=== PATIENT | male | born 1935 | race Caucasian/White ===

== ENCOUNTER 2018-11-07 05:38 | Emergency (ER) | payer MEDICARE, BC ==
[2007-01-14 02:15] VITALS: BP 127/68
[~2018-11-07] VITALS: Ht 167.6 cm; Wt 95.5 kg
[2018-11-07 05:45] VITALS: TEMP 97.4
[2018-11-07 06:09] LABS: COLLECTION METHOD CLEAN CATCH
[2018-11-07 06:13] LABS: BASO # 0.1 (0.0-0.2); BASO % 0.7 % (0.0-2.0); EOS # 0.1 (0.0-0.7); EOS % 1.7 % (0-4.0); GRAN # 5.9 (1.4-6.5); GRAN % 69.4 % (42.2-75.2); HEMOGLOBIN 14.7 g/dl (13.5-18.0); LYMPH # 1.5 (1.2-3.4); LYMPH % 17.9 % (20.0-51.0); MEAN CELL VOLUME 88 fl (80.0-100.0); MEAN CORPUSCULAR HEMOGLOBIN 30 pg (27.0-31.0); MEAN CORPUSCULAR HGB CONC 33 g/dl (33.0-37.0); MEAN PLATELET VOLUME 9.4 fl (7.4-10.4); MONO # 0.8 (0.1-0.6); MONO % 9.7 % (1.7-9.3); PLATELET COUNT 256 K/mm3 (130-400); RED BLOOD COUNT 4.99 M/mm3 (4.20-5.60); REDCELL DISTRIBUTION WIDTH-CV 13.2 % (11.5-14.5)
[2018-11-07 06:24] LABS: PH 5 (5-8); URINE APPEARANCE Clear; URINE COLOR Yellow; URINE PROTEIN(semi-quant) 2+ (NEGATIVE)
[2018-11-07 06:25] LABS: URINE BILIRUBIN Negative (NEGATIVE); URINE BLOOD Negative (NEGATIVE); URINE GLUCOSE Negative (NEGATIVE); URINE KETONE Negative (NEGATIVE); URINE LEUKOCYTE ESTERASE Negative (NEGATIVE); URINE NITRATE Negative (NEGATIVE); URINE UROBILINOGEN Negative (NEGATIVE)
[2018-11-07 06:29] LABS: ALBUMIN 4.4 gm/dL (3.5-5.0); BILIRUBIN,TOTAL 0.5 mg/dL (0.0-1.0); CALCIUM 10.8 mg/dL (8.4-10.2); CREATININE, serum 1.22 mg/dL (0.66-1.25); TOTAL PROTEIN 7.6 gm/dL (6.4-8.2)
[2018-11-07 06:36] LABS: POTASSIUM 3.7 mmol/L (3.4-5.0)
[2018-11-07] MEDS ORDERED: LIPITOR20 MG PO (08:13)
[2018-11-07] MEDS ORDERED: TYLEINFANT (08:14)
[2018-11-07] MEDS ORDERED: BYSTOLIC5 MG (08:14)
[2018-11-07] MEDS ORDERED: GLUCOSAMINE & C1 TAB PO (08:15)
[2018-11-07] MEDS ORDERED: ASPIRIN 32325 MG/TAB PO (08:15)
[2018-11-07] MEDS ORDERED: MICARDIS HCT 121 TA1 PO (08:15)
[2018-11-07] MEDS ORDERED: NORCO 325 MG-51 TAB PO (08:30)
[2018-11-07 08:53] VITALS: BP 169/80; PULSE 84
== END 2018-11-07 08:50 | disposition home or self-care (01) ==
LOC: COL.ER 05:38
PROVIDERS: Emergency Medicine
DX: N20.0 Calculus of kidney (principal); I25.10 Atherosclerotic heart disease of native coronary artery without angina pectoris; I10 Essential (primary) hypertension; E78.5 Hyperlipidemia, unspecified; Z79.82 Long term (current) use of aspirin
CPT/HCPCS: J1885; J2405; J3010; J7030; Q9967

== ENCOUNTER → 2020-01-11 | Outpatient (CLI) | payer MEDICARE, BC ==
[~2020-01-11] MED LIST: ASPIRIN 32325 MG/TAB PO; BYSTOLIC5 MG; GLUCOSAMINE & C1 TAB PO; LIPITOR20 MG PO; MICARDIS HCT 121 TA1 PO; NORCO 325 MG-51 TAB PO; TYLEINFANT
== END ==
LOC: COL.CARD 11:30
DX: I49.3 Ventricular premature depolarization (principal)

== ENCOUNTER → 2020-09-12 | Outpatient (CLI) | payer MEDICARE, BC | LOC: COL.RAD 08:30 | DX: C61 Malignant neoplasm of prostate (principal); C79.51 Secondary malignant neoplasm of bone; N20.0 Calculus of kidney; N21.0 Calculus in bladder; Z90.79 Acquired absence of other genital organ(s); Z90.49 Acquired absence of other specified parts of digestive tract | CPT/HCPCS: A9503; Q9967 ==

== ENCOUNTER → 2020-10-23 | Day surgery (SDC) | payer MEDICARE, BC ==
[2007-01-14 02:15] VITALS: BP 127/68
[~2020-10-23] VITALS: Ht 167.6 cm; Wt 85.9 kg
[~2020-10-23] MED LIST changes: +ALEVE 220MG220 MG PO; +ASPIRIN 81M81 MG/TA2 PO; +BYSTOLIC5 MG PO; +COZAAR100 MG PO; +DITROPAN XL15 MG PO; +DUO-KAPS1 CAP PO; +NORVASC2.5 MG PO; +PRILOSEC 20MG20 MG PO; +VITAMINC1000TA PO; +XTANDI40 MG PO
[2020-10-23 14:20] VITALS: BP 145/72; PULSE 66
--- NOTE | 2020-10-23 14:20 | NUR ---
Patient returns to room 6 per cart from PACU and is awake and alert. Denies pain or nausea. IV fluids infusing. Son in room. Taking sips of water. Siderails up x2 and call light in reach.
[2020-10-23 14:35] VITALS: BP 140/48; PULSE 57
--- NOTE | 2020-10-23 14:35 | NUR ---
Resting and takes juice. Continues to deny pain or nausea.
[2020-10-23 14:50] VITALS: BP 140/65; PULSE 62
--- NOTE | 2020-10-23 14:50 | NUR ---
Eating toast and drinking coffee. Continues to deny pain or nausea.
[2020-10-23 15:05] VITALS: BP 172/66; PULSE 69
--- NOTE | 2020-10-23 15:05 | NUR ---
Tolerated snack and fluids. Continues to deny pain or nausea when asked.
--- NOTE | 2020-10-23 15:15 | NUR ---
Patient assisted up to the bathroom and gait is steady.
--- NOTE | 2020-10-23 15:23 | NUR ---
Returns to room after voiding pink tinged urine.
--- NOTE | 2020-10-23 15:30 | NUR ---
IV discontinued and given dismissal instructions. Patient dresses self.
--- NOTE | 2020-10-23 15:40 | NUR ---
Patient dismissed to home driven by daughter and taken to the front door by wheelchair and assisted into vehicle by this RN with dismissal instructions in hand.
[2020-10-24 07:46] VITALS: BP 168/81; PULSE 73; TEMP 97.3
[2020-10-25 08:15] VITALS: BP 154/62; PULSE 63; TEMP 98.4
== END ==
LOC: SDCO 11:04
DX: N21.0 Calculus in bladder (principal); N13.1 Hydronephrosis with ureteral stricture, not elsewhere classified; N32.0 Bladder-neck obstruction; N35.919 Unspecified urethral stricture, male, unspecified site; G47.33 Obstructive sleep apnea (adult) (pediatric); I10 Essential (primary) hypertension; E66.9 Obesity, unspecified; I25.2 Old myocardial infarction; R97.21 Rising PSA following treatment for malignant neoplasm of prostate; Z90.49 Acquired absence of other specified parts of digestive tract; Z96.653 Presence of artificial knee joint, bilateral; Z79.82 Long term (current) use of aspirin; Z79.899 Other long term (current) drug therapy; Z88.0 Allergy status to penicillin; Z90.79 Acquired absence of other genital organ(s); Z85.46 Personal history of malignant neoplasm of prostate; Z85.828 Personal history of other malignant neoplasm of skin; Z88.2 Allergy status to sulfonamides; Z87.891 Personal history of nicotine dependence; Z99.89 Dependence on other enabling machines and devices; Z20.822 Contact with and (suspected) exposure to COVID-19
CPT/HCPCS: C1769; C2617; J2405; J2704; J3010; J7120

== ENCOUNTER → 2020-12-27 | Outpatient (CLI) | payer MEDICARE, BC | LOC: COL.RAD 07:54 | DX: C61 Malignant neoplasm of prostate (principal); M89.9 Disorder of bone, unspecified; R22.9 Localized swelling, mass and lump, unspecified; Z90.49 Acquired absence of other specified parts of digestive tract | CPT/HCPCS: A9503; Q9967 ==

== ENCOUNTER → 2021-05-15 | Outpatient (CLI) | payer MEDICARE, BC | LOC: COL.RAD 09:20 | DX: K21.9 Gastro-esophageal reflux disease without esophagitis (principal) ==

== ENCOUNTER 2022-09-12 12:14 | Inpatient (IN) | payer MEDICARE, BC ==
[~2022-09-12] VITALS: Ht 170.2 cm; Wt 89.5 kg
[2022-09-12] VITALS (284 sets, daily range): BP systolic 78–79; BP diastolic 50–51; O2SAT 72–100
[~2022-09-12 12:14] MED LIST changes: +BYSTOLIC10 MG PO; +GEMTESA75 MG PO; +PRIL40 PO; +PYRIDIUM 100MG100 MG PO; +TYLENOL 325MG325 MG PO; +TYLENOL W/COD1 UDTAB PO
[2022-09-12 12:37] LABS: BASO # 0.1 K/mm3 (0.0-0.2); BASO % 0.3 % (0.0-2.0); EOS # 0.1 K/mm3 (0.0-0.7); EOS % 0.4 % (0.0-4.0); GRAN # 14.5 K/mm3 (1.4-6.5); LYMPH # 0.5 K/mm3 (1.2-3.4); LYMPH % 3.2 % (20.0-51.0); MEAN CELL VOLUME 94 fl (80.0-100.0); MEAN CORPUSCULAR HEMOGLOBIN 30 pg (27-31); MEAN CORPUSCULAR HGB CONC 32 g/dl (33.0-37.0); MEAN PLATELET VOLUME 10.3 fl (7.4-10.4); MONO # 0.8 K/mm3 (0.1-0.6); MONO % 5.2 % (1.7-9.3); PLATELET COUNT 304 K/mm3 (130-400); RED BLOOD COUNT 3.33 M/mm3 (4.20-5.60); REDCELL DISTRIBUTION WIDTH-CV 14.2 % (11.5-14.5)
[2022-09-12 12:40] LABS: HEMATOCRIT 31.3 % (42.0-52.0)
[2022-09-12 12:42] LABS: SQUAMOUS EPITHELIAL None Seen /hpf (0-10); URINE BACTERIA None Seen /hpf (NONE SEEN); URINE WBC 0-2 /hpf (0-2)
[2022-09-12 12:45] LABS: COLLECTION METHOD CATHETER; URINE APPEARANCE Clear (CLEAR/HAZY); URINE BLOOD 1+ (NEGATIVE); URINE COLOR Amber (YELLOW); URINE GLUCOSE Negative (NEGATIVE); URINE KETONE Negative (NEGATIVE); URINE NITRATE Positive (NEGATIVE); URINE PROTEIN(semi-quant) 1+ (NEGATIVE); URINE UROBILINOGEN 0.2 E.U/dL (0.2-1.0)
[2022-09-12 12:57] LABS: ALBUMIN 1.7 gm/dL (3.4-4.8); BILIRUBIN,TOTAL 0.6 mg/dL (0.2-1.2); CALCIUM 11.4 mg/dL (8.4-10.2); CREATININE, serum 1.5 mg/dL (0.72-1.25); MAGNESIUM 2.2 mg/dL (1.6-2.6); PHOSPHOROUS 3.1 mg/dL (2.3-4.7); POTASSIUM 4.1 mmol/L (3.5-4.5); TOTAL PROTEIN 6.4 gm/dL (6.2-8.1)
[2022-09-12 13:03] LABS: TROPONIN-I 0.019 ng/mL (0.00-0.033)
[2022-09-12 19:41] LABS: ARTERIAL BLD GAS O2 SATURATION 94.6 % (92-100); ARTERIAL BLD GAS TCO2 CT 22.1; ARTERIAL BLOOD GAS BASE EXCESS -1.5 (-2-2); ARTERIAL BLOOD GAS HCO3 21.2 meq/L (22-26); ARTERIAL BLOOD GAS PCO2 30.3 mmHg (35-45); ARTERIAL BLOOD GAS PO2 84.1 mmHg (80-100); ARTERIAL BLOOD GAS pH 7.46 (7.35-7.45)
--- NOTE | 2022-09-12 20:00 | NUR ---
SHIFT REPORT RECEIVED FROM GUARD RANGE. PT RECEIVED FROM OR S/P ABD SURGERY. PT INTUBATED WITH LR RUNNING BY GRAVITY. PT NOT AWAKE OR ALERT. PT WITH LT AC AND RT AC IV ACCESS. PT WITH VERTICAL ABD INCISION WITH BANDAGE CLEAN DAY AND INTACT, NEW COLOSTOMY LT ABD STOMA BEEFY RED IN APPEARANCE, NEW G-TUBE LT ABD WITH TUBING AT 4.5CM AND CLOSED. ABD ROUNDED, FIRM WITH HYPOACTIVE BOWEL SOUNDS. BUE GENERALIZED SCATTERED SCALEY SCABS AND BRUISING. PT WITH FREDERICK IN PLACE WITH MINIMAL ORANGE URINE RETURN, PT HAS BEEN TAKING PYRIDUM. BED IN LOWEST LOCKED POSITION, CALL LIGHT AT BEDSIDE AND BED ALARMS ON.
[2022-09-12 20:49] LABS: CALCIUM 9.3 mg/dL (8.4-10.2); CREATININE, serum 1.45 mg/dL (0.72-1.25); MAGNESIUM 2.1 mg/dL (1.6-2.6); PHOSPHOROUS 4.5 mg/dL (2.3-4.7); POTASSIUM 4.5 mmol/L (3.5-4.5)
[2022-09-12 21:00] LABS: INR 1.5 (0.8-3.0); PROTHROMBIN TIME 17.5 SECONDS (9.7-12.8)
[2022-09-12 21:47] LABS: MEAN CELL VOLUME 95 fl (80.0-100.0); MEAN CORPUSCULAR HGB CONC 31 g/dl (33.0-37.0); PLATELET COUNT 316 K/mm3 (130-400); RED BLOOD COUNT 2.94 M/mm3 (4.20-5.60); REDCELL DISTRIBUTION WIDTH-CV 14.4 % (11.5-14.5)
[2022-09-12 21:49] LABS: HEMATOCRIT 27.8 % (42.0-52.0); HEMOGLOBIN 8.7 g/dl (13.5-18.0); MEAN CORPUSCULAR HEMOGLOBIN 30 pg (27-31)
[2022-09-12 22:21] LABS: BAND 33 % (0-10); LYMPHOCYTE 6 % (20.0-51.0); NEUTROPHILS 61 % (42.0-75.2); PLATELET ESTIMATE NORMAL (NORMAL)
[2022-09-12 22:22] LABS: HYPOCHROMIA 2+
[2022-09-13] VITALS (1044 sets, daily range): BP systolic 78–111; BP diastolic 42–60; PULSE 74–95; TEMP 97.5–98.8; O2SAT 88–100
[2022-09-13 04:38] LABS: ARTERIAL BLOOD GAS BASE EXCESS -0.3 (-2-2); ARTERIAL BLOOD GAS HCO3 22.1 meq/L (22-26); ARTERIAL BLOOD GAS PCO2 29.5 mmHg (35-45); ARTERIAL BLOOD GAS pH 7.49 (7.35-7.45)
--- NOTE | 2022-09-13 05:54 | NUR ---
87 yo male with a history of recurrent prostate cancer on chemotherapy is now admitted s/p colon resection secondary to perforation and concerns for sepsis from an intra-abdominal source. ht 170.2 cm wt 75.6 kg SCr 1.4 with estimated CrCl ~30 ml/min half life 26.5 hours Plan: Patient was to receive an initial loading dose of vancomycin 1500 mg x1 in the ED prior to going to surgery, but could not find any documentation of this loading dose. In light of the patient's decreased urine output, will not re-load patient at this time. Will initiate a maintenance regimen of vancomycin 1000 mg q24h to target a goal trough of 15-20 mcg/ml and begin it sooner than the estimated half life. Will follow patient's renal function, micro data, and vancomycin levels as indicated to assess for any necessary changes to regimen. Thank you for this dosing consult.
[2022-09-13 06:08] LABS: MEAN CELL VOLUME 93 fl (80.0-100.0); MEAN CORPUSCULAR HGB CONC 32 g/dl (33.0-37.0); MEAN PLATELET VOLUME 10.8 fl (7.4-10.4); PLATELET COUNT 317 K/mm3 (130-400); RED BLOOD COUNT 2.79 M/mm3 (4.20-5.60); REDCELL DISTRIBUTION WIDTH-CV 14.4 % (11.5-14.5)
[2022-09-13] MEDS ORDERED: DECADRON 4MG TAB4 MG PO (06:09)
[2022-09-13 06:20] LABS: HEMOGLOBIN 8.4 g/dl (13.5-18.0); MEAN CORPUSCULAR HEMOGLOBIN 30 pg (27-31)
[2022-09-13 06:29] LABS: BILIRUBIN,TOTAL 0.4 mg/dL (0.2-1.2); CALCIUM 9.5 mg/dL (8.4-10.2); CREATININE, serum 1.73 mg/dL (0.72-1.25); PHOSPHOROUS 3.9 mg/dL (2.3-4.7); POTASSIUM 4.2 mmol/L (3.5-4.5)
[2022-09-13 06:34] LABS: INR 1.4 (0.8-3.0); PROTHROMBIN TIME 16.2 SECONDS (9.7-12.8)
[2022-09-13 08:38] LABS: BAND 24 % (0-10); LYMPHOCYTE 5 % (20.0-51.0); NEUTROPHILS 70 % (42.0-75.2)
[2022-09-13 08:39] LABS: ANISOCYTOSIS 1+
[2022-09-13 08:40] LABS: MICROCYTOSIS 1+
[2022-09-13 11:15] LABS: ARTERIAL BLD GAS TCO2 CT 23.1; ARTERIAL BLOOD GAS BASE EXCESS -1.6 (-2-2); ARTERIAL BLOOD GAS HCO3 22.1 meq/L (22-26); ARTERIAL BLOOD GAS PCO2 32.3 mmHg (35-45); ARTERIAL BLOOD GAS PO2 105.4 mmHg (80-100); ARTERIAL BLOOD GAS pH 7.45 (7.35-7.45)
--- NOTE | 2022-09-13 15:09 | NUR ---
Patient is currently intubated; he has had an increased weakness and altered mental status since his first chemo treatment for prostate cancer. Link Machine Operator contacted patient spouse Grazyna ([phone]) and discussed patient home status and anticipated needs. Spouse informs patient had been active, independent up until his first chemotherapy appointment when he obtained "chemo-brain." She states he began to increasingly become weak, and was unable to make decisions, even unable to speak or utilize the TV remote control. For the past two weeks, he has largely been wheelchair bound and their adult daughter Jada Castaneda ([phone]) who is also a medical professional has been providing him full home-care until his hospital admission. Per spouse, Jada is appointed as his DPOA-HC and she will assure that a copy of the paperwork is brought to the hospital to be scanned into patient medical record. Per spouse, patient has access to a cane, walker and wheelchair as needed. He began to eat and drink very little prior to his hospitalization. Daughter was transferring him from the chair to the bed. Patient sees Dr. Antony for primary care and Dr. Cardona for oncology. Patient obtains his medications at [facility] with no difficulties. Spouse does not drive, and she is aware of rehabilitation options for patient, including IPR and/or SNF placements in [facility], should patient be recommended for that care. She does not wish to make further decisions at this time and defers to Jada, requesting this Link Machine Operator call to discuss further. Link Machine Operator contacted Jada, who confirms she is patient's DPOA-HC, and her brother can bring up the Advanced Direct[employer] paperwork Wednesday when he returns to [facility] for scanning into patient medical record. She states she is "exhausted" and "not really thinking" after the care patient has required over the past week. She is up to date on patient status, and she is aware that the next 48-72 hours will be critical in determining patient's recovery and needs he may have. She would like to finish shopping today and get some sleep, requesting social work follow up with her Wednesday-Wednesday to continue discussion re: care planning and pending patient recovery, "Whether he makes it or not." She has no further needs at this time and expresses gratitude for the contact. *Discharge plan pending patient recovery* Link Machine Operator requested to follow up with patient daughter Jada Castaneda ([phone]) on Wednesday or Wednesday to continue care planning conversation.
--- NOTE | 2022-09-13 17:43 | NUR ---
SEDATION NOT COMPLETED PATIENT HAS BECOME RESTLESS THIS EVENING. HE WILL SQUEEZE RNS HANDS BUT NOT ON COMMAND.
--- NOTE | 2022-09-13 20:00 | NUR ---
SHIFT REPORT RECEIVED. PT INTUBATED AND SEDATED. PT ROUSES EASILY BUT DOES NOT FOLLOW COMMANDS AND DOES NOT TRACK MOVEMENT WITH EYES. PT UPPER LOBES WITH CLEAR BREATH SOUNDS WITH DIMINISHED SOUNDS IN BASES. PT ABD INCISION DRESSINGS ARE CLEAN DRY INTACT. PT STOMA IS LIGHT PINK WHICH IS A CHANGE FROM THE BRIGHT RED THE PREVIOUS NIGHT. THERE IS MINIMAL STOOL DRAINAGE IN COLOSTOMY BAG. TURN ASSIST IS ON THE BED AND BED ALARMS ARE ON.
[2022-09-14] VITALS (999 sets, daily range): BP systolic 94–138; BP diastolic 51–100; PULSE 71–112; TEMP 97.8–98.6; O2SAT 86–100
[2022-09-14 03:23] LABS: ARTERIAL BLD GAS O2 SATURATION 94.7 % (92-100); ARTERIAL BLD GAS TCO2 CT 22.7; ARTERIAL BLOOD GAS BASE EXCESS -1.6 (-2-2); ARTERIAL BLOOD GAS HCO3 21.7 meq/L (22-26); ARTERIAL BLOOD GAS PCO2 30.5 mmHg (35-45); ARTERIAL BLOOD GAS PO2 78.5 mmHg (80-100); ARTERIAL BLOOD GAS pH 7.47 (7.35-7.45)
[2022-09-14 04:34] LABS: MEAN CELL VOLUME 95 fl (80.0-100.0); MEAN CORPUSCULAR HGB CONC 31 g/dl (33.0-37.0); MEAN PLATELET VOLUME 10.3 fl (7.4-10.4); PLATELET COUNT 231 K/mm3 (130-400); RED BLOOD COUNT 2.39 M/mm3 (4.20-5.60); REDCELL DISTRIBUTION WIDTH-CV 14.4 % (11.5-14.5)
[2022-09-14 04:48] LABS: BILIRUBIN,TOTAL 0.3 mg/dL (0.2-1.2); CALCIUM 9.9 mg/dL (8.4-10.2); CREATININE, serum 1.5 mg/dL (0.72-1.25); PHOSPHOROUS 3.4 mg/dL (2.3-4.7); POTASSIUM 3.3 mmol/L (3.5-4.5); TOTAL PROTEIN 4.2 gm/dL (6.2-8.1)
[2022-09-14 04:50] LABS: INR 1.4 (0.8-3.0); PROTHROMBIN TIME 15.9 SECONDS (9.7-12.8)
[2022-09-14 05:02] LABS: HEMATOCRIT 22.6 % (42.0-52.0); HEMOGLOBIN 7.1 g/dl (13.5-18.0); MEAN CORPUSCULAR HEMOGLOBIN 30 pg (27-31)
[2022-09-14 05:45] LABS: BAND 4 % (0-10); LYMPHOCYTE 3 % (20.0-51.0)
[2022-09-14 05:48] LABS: ANISOCYTOSIS 1+; HYPOCHROMIA 2+; PLATELET ESTIMATE NORMAL (NORMAL)
[2022-09-14 05:51] LABS: NEUTROPHILS 91 % (42.0-75.2)
--- NOTE | 2022-09-14 06:00 | NUR ---
PT HAS BEEN RESTLESS AND EASILY AGGITABLE THROUGH OUT NIGHT. PT ACHIEVED RASS -1 AFTER INCREASING FENTAYNL. FENTAYNL NOT DECREASED FOR SEDATION VACATION. PT TOLERATING DECREASE IN PROPOFOL.
--- NOTE | 2022-09-14 07:30 | NUR ---
Patient's eyes open spontaneously. At times will track with eyes but is not following any commands. VS stable; will continue to monitor.
[2022-09-14 10:09] LABS: CHOLESTEROL 60 mg/dL (0-199); TRIGLYCERIDE 92 mg/dL (0-149)
[2022-09-14 16:16] LABS: HEMOGLOBIN 6.6 g/dl (13.5-18.0)
--- NOTE | 2022-09-14 16:48 | NUR ---
Telehealth visit with Dr. Mar, Infectious disease. Patient consented to visit via telehealth. Patient's nurse, Zina, present during visit to assist. Connection made with no difficulties. Dr. Mar conducted visit and answered all questions.
--- NOTE | 2022-09-14 18:00 | NUR ---
Patient still opens eyes spontaneously but does not follow commands. Observed pulling at restraints and moving legs in bed. Sedation re-initiated for comfort.
--- NOTE | 2022-09-14 19:24 | NUR ---
PT RESTING IN BED. HE APPEARS TO BE SLIGHTLY AGGITATED AND OCCASIONALLY MOVES HEAD AND ARMS. NO DISTRESS NOTED. VENT PLUGGED INTPO RED OUTLETS. VENT WHEELS LOCKED. AMBUBAG AT HEAD OF BED. HOB WAS 20DEGREES AND ELEVATED TO 30DEGREES. RAILS UP X4 RESTRAINTS ON X2 AND SECURE. VENT AND SUCTION TUBING ARE OUT OF REACH OF PT.
--- NOTE | 2022-09-14 21:15 | NUR ---
NEURO STATUS: PT WILL OPEN EYES TO VOICE BUT DOES NOT FOLLOW DIRECTIONS.
[2022-09-15] VITALS (944 sets, daily range): BP systolic 114–197; BP diastolic 53–101; PULSE 92–125; TEMP 98.6–99.8; O2SAT 87–100
[2022-09-15 00:38] LABS: HEMATOCRIT 22.2 % (42.0-52.0); HEMOGLOBIN 7.4 g/dl (13.5-18.0)
--- NOTE | 2022-09-15 01:21 | NUR ---
PT WAS ABLE TO OPEN EYES AND OPEN MOUTH WIDER WHILE PERFORMING ORAL CARE. NO COMPLICATIONS. NO SIGNS OF RESP DISTRESS. AMBUBAG AT HEAD OF BED.
--- NOTE | 2022-09-15 02:10 | NUR ---
Pt is currently intubated Post operative still on vent but appears in no distress. Requiring no pressor support. VSS. pt will move arms and legs in the bed, open eyes and bite on tube but will not follow commands given by this nurse.
[2022-09-15 04:57] LABS: ARTERIAL BLD GAS O2 SATURATION 96.4 % (92-100); ARTERIAL BLD GAS TCO2 CT 21.8; ARTERIAL BLOOD GAS BASE EXCESS -2.4 (-2-2); ARTERIAL BLOOD GAS HCO3 20.9 meq/L (22-26); ARTERIAL BLOOD GAS PCO2 29.1 mmHg (35-45); ARTERIAL BLOOD GAS pH 7.48 (7.35-7.45)
[2022-09-15 05:24] LABS: MEAN CELL VOLUME 93 fl (80.0-100.0); MEAN CORPUSCULAR HGB CONC 33 g/dl (33.0-37.0); MEAN PLATELET VOLUME 10.5 fl (7.4-10.4); PLATELET COUNT 173 K/mm3 (130-400); RED BLOOD COUNT 2.34 M/mm3 (4.20-5.60)
[2022-09-15 05:33] LABS: HEMATOCRIT 21.8 % (42.0-52.0); HEMOGLOBIN 7.1 g/dl (13.5-18.0); MEAN CORPUSCULAR HEMOGLOBIN 30 pg (27-31)
[2022-09-15 05:45] LABS: ALBUMIN 1.1 gm/dL (3.4-4.8); BILIRUBIN,TOTAL 0.3 mg/dL (0.2-1.2); CALCIUM 9.5 mg/dL (8.4-10.2); CREATININE, serum 1.25 mg/dL (0.72-1.25); MAGNESIUM 2.2 mg/dL (1.6-2.6); PHOSPHOROUS 2.4 mg/dL (2.3-4.7); POTASSIUM 3.5 mmol/L (3.5-4.5); TOTAL PROTEIN 4.1 gm/dL (6.2-8.1)
[2022-09-15 05:47] LABS: INR 1.2 (0.8-3.0)
--- NOTE | 2022-09-15 05:50 | NUR ---
PTS DID NOT QUALIFY FOR WEAN TRIAL. SYSTOLIC BP BELOW 100
[2022-09-15 06:20] LABS: ANISOCYTOSIS 1+; BAND 2 % (0-10); HYPOCHROMIA 1+; LYMPHOCYTE 3 % (20.0-51.0); METAMYELOCYTE 1 % (0-0)
[2022-09-15 06:21] LABS: OVALOCYTES 1+
[2022-09-15 06:22] LABS: NEUTROPHILS 93 % (42.0-75.2)
--- NOTE | 2022-09-15 06:34 | NUR ---
SEDATION VACATION STARTED- SEDATION CUT BY HALF. PT IS MOVING EXTREMITIES BUT NOT FOLLOWING DIRECTIONS OR SIMPLE COMMANDS.
--- NOTE | 2022-09-15 07:06 | NUR ---
REPORT GIVEN TO ZAIDA FREDERICK RN
--- NOTE | 2022-09-15 07:26 | NUR ---
Report received from AUBRIE Waite; patient currently resting in bed with vent on weaning trial and sedation on standby. Patient has fentanyl and propofol hooked up for sedation but it is currently not running. TPN is running through his central port. Patient has Harmon catheter in place and a G-tube; no other lines or tubes are in place. Patient's vital signs are within normal limits.
--- NOTE | 2022-09-15 15:15 | NUR ---
Patient scheduled telehealth visit with Dr. Mar, Infectious Disease. Pt consents to visit. Pt is intubated, nurse Pilar at telehealth visit, to answer questions regarding patient. Equipment set up, audio and video connections established. Visit conducted by . No technical concerns or issues.
[2022-09-15 15:21] LABS: HEMATOCRIT 24.8 % (42.0-52.0); HEMOGLOBIN 7.8 g/dl (13.5-18.0)
--- NOTE | 2022-09-15 18:08 | NUR ---
Patient has been off sedation for most of the day; it was started and ran briefly this afternoon for restlessness and vital signs that were indicative of pain. Patient has been responsive today but not following commands the majority of the time. Patient was taken to CT for follow up.
[2022-09-16] VITALS (1359 sets, daily range): BP systolic 103–170; BP diastolic 53–86; PULSE 104–128; TEMP 98.6–99.6; O2SAT 83–100
--- NOTE | 2022-09-16 01:21 | NUR ---
PT FENT PLACED ON STANDBY AND PT IS SEDATED USING ONLY PROPOFOL.
[2022-09-16 03:48] LABS: MEAN CELL VOLUME 95 fl (80.0-100.0); MEAN CORPUSCULAR HGB CONC 32 g/dl (33.0-37.0); PLATELET COUNT 183 K/mm3 (130-400); RED BLOOD COUNT 2.48 M/mm3 (4.20-5.60); REDCELL DISTRIBUTION WIDTH-CV 15.2 % (11.5-14.5)
[2022-09-16 03:55] LABS: HEMATOCRIT 23.6 % (42.0-52.0); HEMOGLOBIN 7.6 g/dl (13.5-18.0); MEAN CORPUSCULAR HEMOGLOBIN 31 pg (27-31)
[2022-09-16 04:11] LABS: ANISOCYTOSIS 1+; BAND 2 % (0-10); HYPOCHROMIA 1+; LYMPHOCYTE 3 % (20.0-51.0); METAMYELOCYTE 1 % (0-0); MYELOCYTE 2 % (0-0); NEUTROPHILS 92 % (42.0-75.2); PLATELET ESTIMATE NORMAL (NORMAL)
[2022-09-16 04:11] LABS: ARTERIAL BLD GAS TCO2 CT 20.2; ARTERIAL BLOOD GAS BASE EXCESS -3.3 (-2-2); ARTERIAL BLOOD GAS HCO3 19.3 meq/L (22-26); ARTERIAL BLOOD GAS PCO2 27.6 mmHg (35-45); ARTERIAL BLOOD GAS PO2 113.2 mmHg (80-100); ARTERIAL BLOOD GAS pH 7.46 (7.35-7.45)
[2022-09-16 04:13] LABS: CALCIUM 9.5 mg/dL (8.4-10.2); CREATININE, serum 1.01 mg/dL (0.72-1.25); MAGNESIUM 2.2 mg/dL (1.6-2.6); PHOSPHOROUS 2.7 mg/dL (2.3-4.7)
--- NOTE | 2022-09-16 07:25 | NUR ---
Report received from AUBRIE Waite; patient currently resting in bed, still on ventilator but off sedation meds. Patient has TPN running through his port, a Harmon catheter in place and two peripheral lines. Patient's BP is elevated this morning and patient is tachycardic. Patient is satting mid 90s and on weaning trial.
--- NOTE | 2022-09-16 11:00 | NUR ---
Per Dr. Bullock restarted sedation as patient will be back on AC mode on the ventilator.
--- NOTE | 2022-09-16 13:14 | NUR ---
Patient's daughter brought in DPOA paperwork this a.m.; it is located in patient's file.
--- NOTE | 2022-09-16 13:45 | NUR ---
Patient scheduled telehealth visit with Dr. Mar, Infectious Disease. Pt consents to visit. Equipment set up, audio and video connections established. Visit conducted by MD. No technical concerns or issues. PT is intubated, nurse in the room to answer questions.
--- NOTE | 2022-09-16 16:30 | NUR ---
Per Dr. Bullock, stopped sedation and put patient on CPAP mode on ventilator. Will put back on sedation later tonight and pause sedation again in the morning.
--- NOTE | 2022-09-16 17:59 | NUR ---
Patient has been off of sedation and on CPAP mode on the ventilator for most of the day. Patient was responsive and increasingly following more commands, although he would not follow commands 100% of the time.
--- NOTE | 2022-09-16 19:09 | NUR ---
Discussed lumbar puncture with Jada, patient's daughter, and she declined the procedure. Anesthesia does not need to be notified.
--- NOTE | 2022-09-16 20:00 | NUR ---
PT AWAKE AND ALER IN ROOM. PT WILL TRACK NURSE AND FOLLOW SOME SIMPLE ON STEP COMMANDS BUT AT TIMES WILL APPEAR CONFUSED. PER SHIFT REPORT, PT HAS BEEN OFF SEDATIVES MOST OF THE DAY. FOR THROUGHOUT THE NIGHT PT WILL BE PLACED BACK ON ASSIST CONTROL VENT AND ON LIGHT SEDATION. WILL FOLLOW ADDITIONAL NURSING ORDERS IN THE MORNING.
[2022-09-17] VITALS (1178 sets, daily range): BP systolic 98–162; BP diastolic 58–88; PULSE 92–113; TEMP 98.2–98.7; O2SAT 90–100
[2022-09-17 05:03] LABS: CALCIUM 9.2 mg/dL (8.4-10.2); CREATININE, serum 0.84 mg/dL (0.72-1.25); PHOSPHOROUS 2.7 mg/dL (2.3-4.7); POTASSIUM 3.4 mmol/L (3.5-4.5)
--- NOTE | 2022-09-17 08:25 | NUR ---
REPORT RECEIVED FROM AUBRIE SKINNER. PT REMAINS ON VENTILATOR, 8.0 TUBE MEASURING 24CM AT TEETH, TV 440, PEEP 5, FIO2 40, RATE 12. PT HAS BEEN OFF OF SEDATION SINCE 399, TOLERATING VENT WELL, FOLLOWS COMMANDS. LEFT SUBCLAVIAN ZOHRA CATH ACCESSED, DRESSING CDI, POTASSIUM INFUSING ORDERED. DRESSINGS TO MIDLINE INCISION, G TUBE, AND COLOSTOMY ARE ALL CDI. TUBE FEEDING INFUSING TO G TUBE AT 15ML/HR. SMALL AMOUNT OF SEROSANGUINEOUS DRAINAGE NOTED IN OSTOMY POUCH. FREDERICK CATHETER IN PLACE TO DEPENDENT DRAINAGE. VSS AT THIS TIME. PT IS ON A TURN Q2HR SCHEDULE TO PREVENT SKIN BREAKDOWN.
[2022-09-17 08:52] LABS: ARTERIAL BLD GAS O2 SATURATION 95.7 % (92-100); ARTERIAL BLD GAS TCO2 CT 22.1; ARTERIAL BLOOD GAS BASE EXCESS -0.5 (-2-2); ARTERIAL BLOOD GAS HCO3 21.3 meq/L (22-26); ARTERIAL BLOOD GAS PCO2 25.3 mmHg (35-45); ARTERIAL BLOOD GAS PO2 83.6 mmHg (80-100); ARTERIAL BLOOD GAS pH 7.54 (7.35-7.45)
[2022-09-17 09:12] LABS: MEAN CELL VOLUME 99 fl (80.0-100.0); MEAN CORPUSCULAR HGB CONC 30 g/dl (33.0-37.0); MEAN PLATELET VOLUME 11.8 fl (7.4-10.4); PLATELET COUNT 209 K/mm3 (130-400); RED BLOOD COUNT 2.59 M/mm3 (4.20-5.60); REDCELL DISTRIBUTION WIDTH-CV 14.7 % (11.5-14.5)
[2022-09-17 09:16] LABS: HEMATOCRIT 25.6 % (42.0-52.0); HEMOGLOBIN 7.7 g/dl (13.5-18.0); MEAN CORPUSCULAR HEMOGLOBIN 30 pg (27-31)
[2022-09-17 09:48] LABS: BAND 1 % (0-10); LYMPHOCYTE 2 % (20.0-51.0); METAMYELOCYTE 1 % (0-0); NEUTROPHILS 91 % (42.0-75.2); PLATELET ESTIMATE NORMAL (NORMAL)
--- NOTE | 2022-09-17 09:49 | NUR ---
PT EXTUBATED AND PLACED ON 6LPM OM. PT IS CONFUSED, WHICH IS CLOSE TO BASELINE. PT IS AWAKE AND BREATHING WELL. NO DISTRESS NOTED.
--- NOTE | 2022-09-17 10:55 | NUR ---
Patient extubated this morning. Per RN, following commands but still has confusion.
--- NOTE | 2022-09-17 14:35 | NUR ---
Patient scheduled telehealth visit with Dr. Mar, Infectious Disease. Pt consents to visit. Equipment set up, audio and video connections established. Visit conducted by MD. No technical concerns or issues. Nurse present at the visit.
--- NOTE | 2022-09-17 17:57 | NUR ---
PT EXTUBATED AT 0942. OXYGEN HAS BEEN TITRATED TO 2L PER OXYMASK TO KEEP SATS ABOVE 90. PT IS ALERT AND ABLE TO SAY HIS NAME AND BIRTHDAY BUT IS OTHERWISE CONFUSED. DRESSINGS TO MIDLINE INCISION AND G TUBE ARE CDI. PT HAS PASSED GAS THROUGH OSTOMY AND A SMALL AMOUNT OF BROWN LIQUID STOOL NOTED IN DRAINAGE BAG. PT TOLERATING TUBE FEEDS WELL AND HAS HAD ONLY 10ML RESIDUAL DURING CHECKS. BED ALARMS ON FOR PT SAFETY PT IS CONFUSED.
--- NOTE | 2022-09-17 22:17 | NUR ---
RECEIVED REPORT FROM DAY SHIFT. PT IS RESTING IN BED. VITALS ARE STABLE AT THIS TIME. THE INCISION SITE DRESSING IS INTACT AND DRY.
[2022-09-18] VITALS (1383 sets, daily range): BP systolic 121–158; BP diastolic 65–88; PULSE 95–112; TEMP 97.2–98.6; O2SAT 89–99
[2022-09-18 05:48] LABS: MEAN CELL VOLUME 95 fl (80.0-100.0); MEAN CORPUSCULAR HGB CONC 31 g/dl (33.0-37.0); MEAN PLATELET VOLUME 11.2 fl (7.4-10.4); PLATELET COUNT 216 K/mm3 (130-400); RED BLOOD COUNT 2.89 M/mm3 (4.20-5.60); REDCELL DISTRIBUTION WIDTH-CV 14.3 % (11.5-14.5)
[2022-09-18 05:53] LABS: HEMATOCRIT 27.4 % (42.0-52.0); HEMOGLOBIN 8.6 g/dl (13.5-18.0); MEAN CORPUSCULAR HEMOGLOBIN 30 pg (27-31)
[2022-09-18 06:04] LABS: CALCIUM 9.2 mg/dL (8.4-10.2); CREATININE, serum 0.76 mg/dL (0.72-1.25); MAGNESIUM 2.2 mg/dL (1.6-2.6); PHOSPHOROUS 2.3 mg/dL (2.3-4.7); POTASSIUM 3.4 mmol/L (3.5-4.5)
[2022-09-18 06:14] LABS: BAND 5 % (0-10); HYPOCHROMIA 2+; LYMPHOCYTE 6 % (20.0-51.0); METAMYELOCYTE 2 % (0-0); MYELOCYTE 1 % (0-0); NEUTROPHILS 83 % (42.0-75.2); PLATELET ESTIMATE NORMAL (NORMAL)
--- NOTE | 2022-09-18 06:55 | NUR ---
PT IS ALERT. PT IS ORIENTED TO NAME AND PLACE AT TIMES. PT FOLLOWS COMMANDS. NURSE HAS BEEN MONITORING PT'S VITALS THROUGHOUT THE NIGHT. WILL GIVE REPORT TO DAY SHIFT NURSE.
--- NOTE | 2022-09-18 11:18 | NUR ---
BEDSIDE REPORT RECEIVED FROM AUBRIE LABOY. PT RESTING IN BED, VSS. PT ON 2L O2 PER NC TO KEEP SATS ABOVE 90%/ TPN AND TUBE FEEDS INFUSING PER ORDER. DRESSINGS TO MIDLINE INCISION AND G TUBE ARE CDI. COLOSTOMY WNL, STOMA PINK AND MOIST, SMALL AMOUNT OF STOOL NOTED IN BAG. FREDERICK IN PLACE TO DEPENDENT DRAINAGE. PT IS ALERT AND ORIENTED TO SELF BUT DOES HAVE INTERMITTENT CONFUSION. BED ALARM ON FOR PT SAFETY.
--- NOTE | 2022-09-18 13:56 | NUR ---
1100 TUBE FEED INCREASED TO 30ML/HR ORDERED. 1120 DRESSING TO MIDLINE ABD INCISION REMOVED. SKIN NOTED TO BE OPEN BETWEEN RADHA AND THERE IS MODERATE AMOUNT OF SEROSANGUINEOUS FLUID DRAINING AROUND UMBILICUS. DR VERDUGO NOTIFIED. HE INSTRUCTED THIS NURSE TO COVER THE INCISION W/ 4X4S AND ABD PAD AND CHANGE NEEDED WHEN SATURATED. NEW DRESSING APPLIED, WILL CONTINUE TO MONITOR.
--- NOTE | 2022-09-18 14:40 | NUR ---
Patient scheduled telehealth visit with Dr. Mar, Infectious Disease. Pt consents to visit. Equipment set up, audio and video connections established. Visit conducted by MD. No technical concerns or issues. RN Nurse present in room.
--- NOTE | 2022-09-18 15:55 | NUR ---
CLARISSA met with patients daughter Jada to discuss discharge options and PT's recommendation of SNF. Jada verbalizes that she has heard about our IPR unit and that would be the families first choice. Their second choice is either [facility] or [email or web address]. Jada verbalizes that [facility] is not an option for them. Informed her that the patient did not work much with therapy and to be able to be considered for IPR, he would have to be able to tolerate 3 hours of therapy a day, but we can track how he does today now that he is 24 hours post extubation. Educated her that i would go ahead and fax referrals off to [facility] and [facility] for SNF which she verbalizes her agreement to.
--- NOTE | 2022-09-18 17:31 | NUR ---
1230 SPEECH THERAPIST IN TO SEE PT, SWALLOW EVAL DONE. PER THERAPIST PT IS CLEARED TO TAKE PO FLUIDS W/ STRAW AND SOFT AND BITE SIZED DIET. PT MUST BE FED ALL MEALS AND NOT LEFT UNATTENDED WHILE EATING DUE TO AMS. 1300 PT ABLE TO SIT ON EDGE OF BED W/ PHYSICAL THERAPY, TOLERATES WELL BUT LEANS TO RIGHT SIDE AND IS VERY WEAK. 1500 PT TAKEN TO RADIOLOGY FOR MRI VIA STRETCHER, RETURNED TO ICU AT 1535. 1700 COLOSTOMY BAG CHANGED AND STOMA CLEANED. STOMA IS RED AND MOIST. 75ML OF STOOL EMPTIED FROM BAG. DRESSING TO MIDLINE CHANGED, MODERATE AMOUNT OF SEROSANGUINEOUS DRAINAGE NOTED TO OLD DRESSING. 4X4 GAUZE AND ABD PAD APPLIED. 1730 OPEN AREA TO R EAR CLEANSED W/ SALINE AND COTTON SWAB, A AND D OINTMENT APPLIED. THIS IS HOW PT CARES FOR WOUND AT HOME PER PT'S .
--- NOTE | 2022-09-18 18:59 | NUR ---
PT HAS A WEAK NON PRODUCTIVE COUGH
--- NOTE | 2022-09-18 20:00 | NUR ---
SHIFT REPORT RECEIVED. PT IS AWAKE IN BED AND ALERTS TO VOICE, BUT SPEECH IS MUMBLED AND CONFUSED. PT NOT ORIENTED TO TIME, PLACE, OR SELF. PT IS ON 2L OXYMASK WITH UPPER BREATH SOUNDS CLEAR AND LOWER LOBES DIMINISHED. PT IS EXHIBITING KIMMY STROKES RESPRITORY PATTERN. PT BUE ARE +2 EDEMA WITH BL HANDS BEING +3, BLE +2 EDEMA AND SCROTUM +1 EDEMA. PT'S STOMA IS RED IN COLOR AND COLOSTOMY HAS SMALL AMOUNT SOFT BROWN STOOL. PEG TUBE INCISION IS CDI AND ABD INCISION HAS SCANT SEROSANGUINEOUS DRAINAGE FROM LOWER PART OF INCISION. PT'S RT EAR HAS APPROX 9MM ROUND CAVITY FROM PREVIOUS SX.
[2022-09-19] VITALS (461 sets, daily range): BP systolic 109–139; BP diastolic 59–81; PULSE 102–120; TEMP 97.2–99.4; O2SAT 86–100
[2022-09-19 05:14] LABS: MEAN CELL VOLUME 96 fl (80.0-100.0); MEAN CORPUSCULAR HGB CONC 31 g/dl (33.0-37.0); MEAN PLATELET VOLUME 11.2 fl (7.4-10.4); PLATELET COUNT 228 K/mm3 (130-400); RED BLOOD COUNT 2.96 M/mm3 (4.20-5.60); REDCELL DISTRIBUTION WIDTH-CV 14.3 % (11.5-14.5)
[2022-09-19 05:27] LABS: HEMATOCRIT 28.3 % (42.0-52.0); HEMOGLOBIN 8.7 g/dl (13.5-18.0); MEAN CORPUSCULAR HEMOGLOBIN 29 pg (27-31)
[2022-09-19 05:28] LABS: PHOSPHOROUS 2.2 mg/dL (2.3-4.7)
[2022-09-19 05:58] LABS: BAND 1 % (0-10); LYMPHOCYTE 8 % (20.0-51.0); METAMYELOCYTE 3 % (0-0); MYELOCYTE 1 % (0-0); NEUTROPHILS 83 % (42.0-75.2); PLATELET ESTIMATE NORMAL (NORMAL)
[2022-09-19 06:12] LABS: ARTERIAL BLD GAS TCO2 CT 26.4; ARTERIAL BLOOD GAS BASE EXCESS 2.9 (-2-2); ARTERIAL BLOOD GAS HCO3 25.5 meq/L (22-26); ARTERIAL BLOOD GAS PCO2 31.6 mmHg (35-45); ARTERIAL BLOOD GAS PO2 77.2 mmHg (80-100); ARTERIAL BLOOD GAS pH 7.52 (7.35-7.45)
--- NOTE | 2022-09-19 08:57 | NUR ---
Report received from AUBRIE Menchaca; patient currently resting comfortably in bed with no fluids or meds running through his port or peripheral line. Patient's vital signs are within normal limits this morning. Patient has colostomy bag and Harmon catheter in place.
--- NOTE | 2022-09-19 12:34 | NUR ---
Mud Trucker rounds: Patient was sleeping. Patient's and son were in room. The son accepted prayer. Mud Trucker prayed for Patient and family. stated that they attend [facility]. Patient is on the prayer list at their yazidi and other churches in the yazidi family network.
--- NOTE | 2022-09-19 12:45 | NUR ---
Reported off to AUBRIE Hernandez; patient taken upstairs by two techs from the med floor; patient was in stable condition and all vital signs were within normal limits. Patient's belongings were sent up with patient. Jada, patient's daughter, was notified of the room change, and that he was now up in medical in room 311.
--- NOTE | 2022-09-19 13:00 | NUR ---
Patient to room 311 by bed from the ICU. Slide board utilized and patient positioned for comfort HOB at 30 degrees. Alert, but confused, mummbles, not audible speech. VSS. IV CDI, fluids infusing. G tube intact, feeding in process. Harmon intact. Nurse oriented the patient to location, room and call light. Call light within reach.
[2022-09-19] MEDS ORDERED: LIPITOR20 MG PO (17:07)
[2022-09-19] MEDS ORDERED: LASIX 40MG TABL40 MG PO (17:08)
[2022-09-19] MEDS ORDERED: PREDNISONE 5MG5 MG PO (17:08)
[2022-09-19] MEDS ORDERED: DECADRON 4MG TAB4 MG PO (17:09)
--- NOTE | 2022-09-19 19:59 | NUR ---
PT IS RESTING COMFORTABLY IN BED. CALL LIGHT WITHIN REACH. PT TALKING SLIGHTLY BUT UNABLE TO UNDERSTAND WHAT HE IS SAYING. HOB ELEVATED. NO DISTRESS NOTED. NO VOICED CONCERNS.
[2022-09-19 22:46] LABS: CALCIUM 9.3 mg/dL (8.4-10.2); CREATININE, serum 0.79 mg/dL (0.72-1.25); POTASSIUM 3.4 mmol/L (3.5-4.5)
[2022-09-20 03:37] VITALS: BP 121/57; PULSE 115; TEMP 98.7
[2022-09-20 06:22] LABS: MEAN CELL VOLUME 95 fl (80.0-100.0); MEAN CORPUSCULAR HGB CONC 31 g/dl (33.0-37.0); MEAN PLATELET VOLUME 11.5 fl (7.4-10.4); PLATELET COUNT 255 K/mm3 (130-400); REDCELL DISTRIBUTION WIDTH-CV 14.6 % (11.5-14.5)
[2022-09-20 06:31] LABS: HEMATOCRIT 26.7 % (42.0-52.0); HEMOGLOBIN 8.2 g/dl (13.5-18.0); MEAN CORPUSCULAR HEMOGLOBIN 29 pg (27-31)
[2022-09-20 06:35] LABS: CALCIUM 9.1 mg/dL (8.4-10.2); CREATININE, serum 0.76 mg/dL (0.72-1.25); POTASSIUM 4.5 mmol/L (3.5-4.5)
[2022-09-20 06:59] LABS: BAND 1 % (0-10); EOSINOPHIL 2 % (0-4); LYMPHOCYTE 4 % (20.0-51.0); METAMYELOCYTE 1 % (0-0); NEUTROPHILS 89 % (42.0-75.2)
[2022-09-20 07:00] LABS: HYPOCHROMIA 3+; PLATELET ESTIMATE NORMAL (NORMAL)
[2022-09-20 07:17] VITALS: BP 144/69; PULSE 117; TEMP 98
--- NOTE | 2022-09-20 09:32 | NUR ---
Patient sitting up in bed HOB at or greater than 30 degrees. Alert, but confused and drowsy. VSS 2L OM. IV CDI. Harmon intact. G tube intact tube feed in progree and tolerating well. Colostomy intact. Legs/heels floated. Patient positioned for comfort. Call light within reach
[2022-09-20 11:10] VITALS: BP 144/65; PULSE 117; TEMP 98.9
[2022-09-20 15:15] VITALS: BP 147/70; PULSE 115; TEMP 98.5
[2022-09-20 19:32] VITALS: BP 125/76; PULSE 107; TEMP 98.8
[2022-09-20 23:51] VITALS: BP 126/66; PULSE 115; TEMP 99.5
[2022-09-21 04:17] VITALS: BP 127/64; PULSE 105; TEMP 98.5
[2022-09-21 06:43] LABS: MEAN CELL VOLUME 98 fl (80.0-100.0); MEAN CORPUSCULAR HGB CONC 31 g/dl (33.0-37.0); PLATELET COUNT 288 K/mm3 (130-400); RED BLOOD COUNT 2.63 M/mm3 (4.20-5.60); REDCELL DISTRIBUTION WIDTH-CV 14.6 % (11.5-14.5)
[2022-09-21 06:47] LABS: HEMATOCRIT 25.8 % (42.0-52.0); HEMOGLOBIN 7.9 g/dl (13.5-18.0); MEAN CORPUSCULAR HEMOGLOBIN 30 pg (27-31)
[2022-09-21 07:03] LABS: CALCIUM 9.4 mg/dL (8.4-10.2); CREATININE, serum 0.78 mg/dL (0.72-1.25); MAGNESIUM 1.9 mg/dL (1.6-2.6); POTASSIUM 3.9 mmol/L (3.5-4.5)
[2022-09-21 07:33] VITALS: BP 134/66; PULSE 104; TEMP 98.5
[2022-09-21 08:21] LABS: BAND 4 % (0-10); LYMPHOCYTE 6 % (20.0-51.0); METAMYELOCYTE 1 % (0-0); NEUTROPHILS 86 % (42.0-75.2); PLATELET ESTIMATE NORMAL (NORMAL)
--- NOTE | 2022-09-21 08:31 | NUR ---
Assessment complete. Unable to assess orientation status- speech garbled and difficult to understand. 1L/oxy mask. Respirations [address] per minute. Tele reading ST [facility]. INT to right ac without s/s complications. Portacath to left chest without s/s complications. Continuous tube feeding to g tube at 45ml/hr. Residual 50ml. HOB elevated 30 degrees. Colostomly with brown liquid stool, no complications noted. Repositioned from right to left side. Coccyx red but blancable. Heels floated. SCDs in place. Harmon DD sally urine with sediment. Will attempt to get special bed for patient today.
--- NOTE | 2022-09-21 10:01 | NUR ---
Clinical referral faxed to Jonathon at [facility].
[2022-09-21 11:37] VITALS: BP 146/74; PULSE 115; TEMP 98.2
--- NOTE | 2022-09-21 15:00 | NUR ---
Patient scheduled telehealth visit with Dr. Mar, Infectious Disease. Pt consents to visit. Equipment set up, audio and video connections established. Visit conducted by MD. No technical concerns or issues. Patients daughter in the room.
--- NOTE | 2022-09-21 15:07 | NUR ---
Professional Poker Player met with patient's , Grazyna and daughter, Jada to discuss discharge planning. Patient's family is concerned about referral to [facility] as this will be difficult for visiting and they do not feel patient would be happy being that far away. CLARISSA advised referrals were sent to [facility], which are still being reviewed. Family would like to hear back from SNF before making a decision. CLARISSA updated Hospitalist.
[2022-09-21 16:16] VITALS: BP 139/63; PULSE 110; TEMP 99.5
--- NOTE | 2022-09-21 18:32 | NUR ---
Pt continues to be able to answer questions- speech difficult to understand. Pt unable to follow commands. PROM performed q 2 hours with repositioning. Pt transferred to a speciality bed- with repositioning automatically set. Fentanyl administered prior to transfer to bed since patient moans with repositioning side to side. Heel protectors placed. Dressing to mid line incision removed since there has been no drainage this shift.
[2022-09-21 20:09] VITALS: BP 144/72; PULSE 113; TEMP 98.3
--- NOTE | 2022-09-21 22:42 | NUR ---
Patient assessed around 2029. On oxygen at 1 L/min via OM. Having s/sx of pain and discomfort: moaning, facial grimacing. Given PRN Fentanyl per orders. Tube feeding in progress per orders. Colostomy to LLQ. Indwelling baron catheter in place, drianing yellow, cloudy urine via dependent drainage. On specialty bed for continuous repositioning.
[2022-09-21 23:17] VITALS: BP 139/73; PULSE 115; TEMP 98.4
[2022-09-22] VITALS (7 sets, daily range): BP systolic 102–156; BP diastolic 43–81; PULSE 103–133; TEMP 98.6–99
--- NOTE | 2022-09-22 05:39 | NUR ---
Continuous tube feedings per orders. On oxygen at 1 L/min via OM. Patient voices no questions, needs, or concerns at this time. In bed with call light within reach. High fall risk precautions in place. Specialty bed repositioning patient. Indwelling baron catheter emptied.
[2022-09-22 07:03] LABS: CALCIUM 9.5 mg/dL (8.4-10.2); CREATININE, serum 0.76 mg/dL (0.72-1.25); PHOSPHOROUS 2.6 mg/dL (2.3-4.7); POTASSIUM 3.9 mmol/L (3.5-4.5)
[2022-09-22 07:13] LABS: MEAN CELL VOLUME 96 fl (80.0-100.0); MEAN CORPUSCULAR HGB CONC 30 g/dl (33.0-37.0); MEAN PLATELET VOLUME 11.2 fl (7.4-10.4); PLATELET COUNT 331 K/mm3 (130-400); RED BLOOD COUNT 2.76 M/mm3 (4.20-5.60); REDCELL DISTRIBUTION WIDTH-CV 14.4 % (11.5-14.5)
[2022-09-22 07:15] LABS: HEMATOCRIT 26.5 % (42.0-52.0); MEAN CORPUSCULAR HEMOGLOBIN 29 pg (27-31)
[2022-09-22 08:47] LABS: BAND 2 % (0-10); EOSINOPHIL 4 % (0-4); LYMPHOCYTE 3 % (20.0-51.0); METAMYELOCYTE 1 % (0-0); NEUTROPHILS 84 % (42.0-75.2); PLATELET ESTIMATE NORMAL (NORMAL)
[2022-09-22 08:49] LABS: HYPOCHROMIA 2+
--- NOTE | 2022-09-22 12:09 | NUR ---
Clinical updates faxed to Ami at [facility]
--- NOTE | 2022-09-22 13:17 | NUR ---
Architecture Technician spoke with Jonathon g[facility] who met with patient and family at bedside. Patient's family are discussing goals of care and have discussed this with hospitalist.
--- NOTE | 2022-09-22 15:00 | NUR ---
Patient scheduled telehealth visit with Dr. Mar, Infectious Disease. Pt consents to visit. Equipment set up, audio and video connections established. Visit conducted by MD. No technical concerns or issues. Patient and daughter in room. Nurse present in room.
--- NOTE | 2022-09-22 15:32 | NUR ---
Test And Balance Engineer was approached by patient's daughter, Jada who stated she did not want anyone from the hospital telling facilities not to take her father. She stated that she received a call from one of the facilities stating that someone from the hospital contacted them and told them not to take her father. Jada did not name a facility. CLARISSA explained referral process to Jada and stated that SW is in contact with the facilities, however has not stated to the facility to not accept her father. CLARISSA advised a referral packet was sent to both [facility].
--- NOTE | 2022-09-22 17:58 | NUR ---
ORAL CARE PROVIDED TO PATIENT EVERY 2 HOURS THIS SHIFT, PATIENT IS A MOUTH BREATHER AND ORAL BUCAL IS DRY AND FLAKEY. ARTIFICAL SALIVA APPLIED AFTER EACH ORAL CARE. PT IN SPECIALITY BED THAT IS SET TO TURN EVERY 30 MINUTES. FREDERICK CARE PROVIDED TWICE THIS SHIFT. PT ANWERS YES AND NO QUESTIONS BUT WITH A SLIGHT DELAY.
--- NOTE | 2022-09-22 20:35 | NUR ---
ASSESSMENT COMPLETED. NO NEEDS AT THIS TIME. URINE YELLOW/CLOUDY. PORT DRAWS BLOOD AND FLUSHES EASILY. GIVEN NIGHTLY MED. CALL LIGHT IN REACH. IN SPECIALTY BED TURNING ITSELF. BED IN LOWEST POSITION. ON 1L OXYMASK. CONTINUES ON TUBE FEEDS AT GOAL OF 45ML/HR. [address] TO MID ABD.
[2022-09-23 04:03] VITALS: BP 138/71; PULSE 121; TEMP 99.8
--- NOTE | 2022-09-23 06:05 | NUR ---
PATIENT SLEEPING IN BED AND SEEMS COMFORTABLE. NO CHANGES THIS MORNING. CONTINUES ON OXYMASK. GIVEN FENTANYL 1X THIS SHIFT. HR IN THE LOW 100'S. TUBE FEEDING CHANGED WITH 1026ML INTAKE. THE SPECIALTY BED IS TURNING THE PATIENT.
[2022-09-23 06:58] LABS: MEAN CELL VOLUME 94 fl (80.0-100.0); MEAN CORPUSCULAR HGB CONC 31 g/dl (33.0-37.0); MEAN PLATELET VOLUME 10.6 fl (7.4-10.4); PLATELET COUNT 329 K/mm3 (130-400); RED BLOOD COUNT 2.59 M/mm3 (4.20-5.60); REDCELL DISTRIBUTION WIDTH-CV 14.3 % (11.5-14.5)
[2022-09-23 07:04] LABS: HEMATOCRIT 24.4 % (42.0-52.0); HEMOGLOBIN 7.6 g/dl (13.5-18.0); MEAN CORPUSCULAR HEMOGLOBIN 29 pg (27-31)
[2022-09-23 07:09] LABS: ALBUMIN 1.6 gm/dL (3.4-4.8); BILIRUBIN,TOTAL 0.3 mg/dL (0.2-1.2); CALCIUM 9.5 mg/dL (8.4-10.2); CREATININE, serum 0.76 mg/dL (0.72-1.25); MAGNESIUM 1.8 mg/dL (1.6-2.6); PHOSPHOROUS 2.7 mg/dL (2.3-4.7); POTASSIUM 3.5 mmol/L (3.5-4.5); TOTAL PROTEIN 4.7 gm/dL (6.2-8.1)
[2022-09-23 07:47] VITALS: BP 143/63; PULSE 103; TEMP 98.4
[2022-09-23 08:55] LABS: ANISOCYTOSIS 1+; EOSINOPHIL 4 % (0-4); HYPOCHROMIA 3+; METAMYELOCYTE 1 % (0-0); NEUTROPHILS 92 % (42.0-75.2)
[2022-09-23 08:57] LABS: POLYCHROMASIA 1+
--- NOTE | 2022-09-23 10:48 | NUR ---
ORAL CARE DELIVERED THREE TIMES SINCE 0700, ORAL BUCCAL IS DRY, ARTIFICAL SALIVA PLACED IN MOUTH TO ASSIST WITH DRYNESS. PT IS ABLE TO ANSWER YES AND NO QUESTIONS BUT IS DELAYED WITH ANSWER. CATH CARE PERFORMED. SPECIALITY BED IN PLACE AND TURNS PATIENT EVERY 30 MINUTES.
[2022-09-23 11:43] VITALS: BP 131/70; PULSE 122; TEMP 99.3
--- NOTE | 2022-09-23 14:26 | NUR ---
Patient scheduled telehealth visit with Dr. Mar, Infectious Disease. Pt consents to visit. Equipment set up, audio and video connections established. Visit conducted by MD. No technical concerns or issues. RN present in the room.
--- NOTE | 2022-09-23 14:29 | NUR ---
PT MORE ALERT AT THIS MOMENT, HE WAS ABLE TO ANSWER PHYSICIAN QUESTIONS WITHOUT PROBLEM. ORAL CARE CONTINUES TO BE A CHALLENGE, RESP THERAPIST [id number] PROVIDED IDEAS TO FACILITATE REMOVAL OF DRAINAGE.
[2022-09-23 15:43] VITALS: BP 128/80; PULSE 119; TEMP 99.3
--- NOTE | 2022-09-23 15:56 | NUR ---
Industrial Waste Treatment Technician met with patient's daughter who requested a referral be sent to [facility]. Jada is also open to having a referral sent to [facility] in [place]. SW contacted both facilities and faxed referrals.
--- NOTE | 2022-09-23 19:52 | NUR ---
PATIENT ASSESSED. HE IS LAYING SUPINE IN BED AND IS BEING TURNED BY HIS SPECIALTY BED AND ARMS RESTING ON PILLOWS. HGB DOWN TO 7.6 FROM 8.0. HE IS TALKATIVE TONIGHT BUT DISORIENTED. CONTINUES ON 1.5L OF OXYGEN VIA OXYMASK. OSTOMY WITH MINIMAL BROWN/GREEN LIQUID DRAINAGE. TUBE FEEDING CONTINUES. THE BACK OF HIS MOUTH STILL HAS QUITE OF BIT OF BUILDUP, WILL CONTINUE WITH NEBS AND SUCTIONING. 13 RADHA TO ABDOMEN ARE CDI. NO NEEDS AT THIS TIME.
[2022-09-23 20:39] VITALS: BP 140/76; PULSE 125; TEMP 99.6
[2022-09-23 23:51] VITALS: BP 155/89; PULSE 136; TEMP 97.9
[2022-09-24] VITALS: BP 129/78; PULSE 125
[2022-09-24 00:29] LABS: MEAN CELL VOLUME 97 fl (80.0-100.0); MEAN CORPUSCULAR HGB CONC 30 g/dl (33.0-37.0); MEAN PLATELET VOLUME 10.4 fl (7.4-10.4); RED BLOOD COUNT 2.81 M/mm3 (4.20-5.60); REDCELL DISTRIBUTION WIDTH-CV 14.4 % (11.5-14.5)
[2022-09-24 00:32] LABS: HEMATOCRIT 27.2 % (42.0-52.0); HEMOGLOBIN 8.2 g/dl (13.5-18.0); MEAN CORPUSCULAR HEMOGLOBIN 29 pg (27-31); PLATELET COUNT 502 K/mm3 (130-400)
[2022-09-24 00:45] LABS: CALCIUM 9.7 mg/dL (8.4-10.2); CREATININE, serum 0.86 mg/dL (0.72-1.25)
[2022-09-24 00:53] LABS: TROPONIN-I 0.05 ng/mL (0.00-0.033)
--- NOTE | 2022-09-24 00:55 | NUR ---
WALKER Bryant informed of elevated troponin an WBC.
[2022-09-24 01:12] LABS: BAND 5 % (0-10); EOSINOPHIL 2 % (0-4); LYMPHOCYTE 12 % (20.0-51.0); NEUTROPHILS 74 % (42.0-75.2); PLATELET ESTIMATE INCREASED (NORMAL)
--- NOTE | 2022-09-24 01:48 | NUR ---
THIS NURSE ENTERED THE ROOM TO GIVE THE PATIENT HIS LOPRESSOR AND ANTIBIOTIC AROUND 234. UPON ENTERING, THE PATIENT WAS UNRESPONSIVE AND HAVING NOTABLE STRIDOR--HIS OXYGEN SATURATIONS WERE IN THE HIGH 80'S AND FURTHER PUT ON 5L VIA OXYMASK. WALKER RAWLS, WAS NOTIFIED AND CAME TO ASSESS THE PATIENT. CURLY STATED THAT HE LOOKED FLUID OVERLOADED AND WANTED AN ABG, LABS, AND LASIX 20MG. LASIX WAS GIVEN AND LABS WERE DRAWN FROM HIS PORT. RT CAME TO GET HIS ABG AND PUT HIM ON THE BIPAP. CURLY WANTED A CT OF HIS ABDOMEN AND THIS WAS OBTAINED--AWAITING RESULTS. VITA STARTED TO OPEN HIS EYES HE WAS BEING TRANSFERRED BACK TO THE FLOOR FROM CT. FAMILY WAS CALLED AND THE DAUGHTER CAME TO THE FLOOR. SHE IS THE DPOA AND STATED THAT SHE DOES NOT WANT HIM TO BE INTUBATED NOR DOES SHE WANT HIM TO HAVE COMPRESSIONS. HE IS CURRENTLY RESTING SUPINE IN BED IN THE LOWEST POSITION AND HIS CALL LIGHT IN REACH. THE DAUGHTER IS AT BEDSIDE AND WILL RESIDE THERE TONIGHT.
[2022-09-24 02:04] LABS: ARTERIAL BLD GAS O2 SATURATION 97.4 % (92-100); ARTERIAL BLOOD GAS BASE EXCESS -4.4 (-2-2); ARTERIAL BLOOD GAS HCO3 28.2 meq/L (22-26)
[2022-09-24 02:06] LABS: ARTERIAL BLOOD GAS PCO2 93.3 mmHg (35-45); ARTERIAL BLOOD GAS PO2 148.7 mmHg (80-100)
[2022-09-24 03:30] LABS: ARTERIAL BLD GAS O2 SATURATION 97.7 % (92-100); ARTERIAL BLOOD GAS BASE EXCESS 5.2 (-2-2); ARTERIAL BLOOD GAS HCO3 29.7 meq/L (22-26); ARTERIAL BLOOD GAS PO2 106.5 mmHg (80-100); ARTERIAL BLOOD GAS pH 7.45 (7.35-7.45)
[2022-09-24 03:51] VITALS: BP 110/56; PULSE 111; TEMP 98.7
--- NOTE | 2022-09-24 05:26 | NUR ---
PATIENT IS CURRENTLY SLEEPING WITH HIS BIPAP ON. DAUGHTER AT BEDSIDE. FAMILY IS LEANING TOWARDS PUTTING THE PATIENT ON COMFORT CARE AND TALKING ABOUT END-OF-LIFE GOALS. THEY ARE WANTING PAIN AND ANXIETY CONTROL, AWAITING CURLY'S RESPONSE. REPEAT ABG DONE AND RESULTS ARE IN HIS CHART. TUBE FEEDINGS CONTINUE. FLACC IS 0. NO SOA NOTED.
[2022-09-24 05:48] VITALS: BP 114/61; PULSE 108
--- NOTE | 2022-09-24 06:14 | NUR ---
THIS NURSE AND CURLY, BELLSTAFF CONVERSED WITH THE FAMILY THEY DECIDED TO PUT THE PATIENT ON COMFORT CARE FOR END OF LIFE SUPPORT. WILL PROCEED INDICATED.
--- NOTE | 2022-09-24 07:12 | NUR ---
Patient given PRN Ativan at approximately 0620. Took BIPAP off with RT at approximately 0640, placed on oxygen at 2 L/min via oxymask for comfort. and given PRN Fentanyl at the same time to help keep patient comfortable. Daughter remains at bedside. Voices no questions, needs, or concerns. Encouraged to call if she notices any discomfort in patient. Report given to day shift RN.
--- NOTE | 2022-09-24 09:33 | NUR ---
Initial visit; Patient sleeping and is now on Palliative Care. Packing Attendant spoke with his daughter and let her know Packing Attendant is available to pray over Elijah and/or offer prayer and support for her and other family members. She thanked Packing Attendant for stopping.
--- NOTE | 2022-09-24 10:21 | NUR ---
PATIENT ON COMFORT CARE OF THIS MORNING. IV ATIVAN AND FETANYL GIVEN EVERY 2 HOURS. PATIENT ON OXIMASK FOR COMFORT. WILL TRY TO WEAN OFF. VITALS PRN. ALL INTERVENTIONS DISCONTINUED. TUBE FEEDING PUT TO DEPENDENT DRAINAGE FOR DISTENTION.PATIENT IS COMFORTABLE WITH DAUGHTER AT BEDSIDE.
--- NOTE | 2022-09-24 10:46 | NUR ---
Slurry Tank Tender attended clinical rounds with the team and patient was transitioned to comfort care overnight. At this time, Hospitalist team advised patient may not be stable for transfer and may pass here in the hospital. Patient to remain here today. SW met with patient's daughter, Jada to check in and offer support. SW also reviewed options for hospice placement including nursing homes and the [facility] if patient would become stable enough for transfer from the hospital. Discharge Plan: On comfort care
--- NOTE | 2022-09-24 15:05 | NUR ---
Patient scheduled telehealth visit with Dr. Mar, Infectious Disease. Pt consents to visit. Equipment set up, audio and video connections established. Visit conducted by MD. No technical concerns or issues. Daughter present in room.
--- NOTE | 2022-09-24 22:45 | NUR ---
CALLED DAUGHTER TREVER D/T PATIENT'S HR DECREASING SIGNIFICANTLY. SHE STATES SHE WILL BE HERE SHORTLY.
--- NOTE | 2022-09-24 22:50 | NUR ---
AT 2247, IN PATIENT'S ROOM TO ASSESS D/T LOW HEARTRATE. AT 2049 HEART TONES NO LONGER AUDIBLE. NO RESPIRATIONS. AUBRIE GREWAL CALLED TO COME VERIFY ASYSTOLE. WHEN THIS RN WALKED OUT OF THE ROOM TO CHECK TELEMETRY THE PATIENT'S MONITOR SHOWED ASYSTOLE. AUBRIE GREWAL VERIFIED.
--- NOTE | 2022-09-24 22:51 | NUR ---
WALKER RAWLS CALLED TO NOTIFY OF THE TWO NURSE VERIFICATION TIME OF 2049. AUBRIE ARAIZASTAFF WRITER CALLED TO NOTIFY OF THE PATIENT'S .
--- NOTE | 2022-09-24 23:10 | NUR ---
PT'S FAMILY ARRIVED AT THIS TIME. REMOVED PERSONAL BELONGINGS AND SENT WITH DAUGHTER TREVER. SHE REQUESTED THAT HIS DENTURES STAY WITH HIM.
--- NOTE | 2022-09-24 23:40 | NUR ---
[facility] notified of TOD, [id number]. Not a candidate for donation. #[id number].
== END 2022-09-24 22:50 | disposition expired | DRG 853 ==
LOC: COL.ER → EDBD 12:14 → COL.ER 12:14 → ICU 17:05 → MEDICAL 09-19 13:27
PROVIDERS: Emergency Medicine; Internal Medicine Pulmonary Disease; Nurse Practitioner Family; Physician Assistant; Student in an Organized Health Care Education/Training Program; Surgery; ADMIT Internal Medicine
PROC: 0D1M0Z4 Bypass Descending Colon to Cutaneous, Open Approach (ICD-10-PCS; principal; 2022-09-12 15:32)
PROC: 0DTG0ZZ Resection of Left Large Intestine, Open Approach (ICD-10-PCS; 2022-09-12 15:32)
PROC: 5A1945Z Respiratory Ventilation, 24-96 Consecutive Hours (ICD-10-PCS; 2022-09-13)
DX: A41.9 Sepsis, unspecified organism (principal); I21.A1 Myocardial infarction type 2; R65.21 Severe sepsis with septic shock; K57.80 Diverticulitis of intestine, part unspecified, with perforation and abscess without bleeding; N13.30 Unspecified hydronephrosis; N17.9 Acute kidney failure, unspecified; I50.22 Chronic systolic (congestive) heart failure; E87.20 Acidosis, unspecified; G93.40 Encephalopathy, unspecified; R18.8 Other ascites; J98.11 Atelectasis; E87.6 Hypokalemia; E83.39 Other disorders of phosphorus metabolism; I25.10 Atherosclerotic heart disease of native coronary artery without angina pectoris; I11.0 Hypertensive heart disease with heart failure; C61 Malignant neoplasm of prostate; D64.9 Anemia, unspecified; K21.9 Gastro-esophageal reflux disease without esophagitis; E83.52 Hypercalcemia; E78.5 Hyperlipidemia, unspecified; I25.2 Old myocardial infarction; Z95.5 Presence of coronary angioplasty implant and graft; Z96.653 Presence of artificial knee joint, bilateral; Z53.31 Laparoscopic surgical procedure converted to open procedure; Z88.0 Allergy status to penicillin; Z88.5 Allergy status to narcotic agent
CPT/HCPCS: J0330; J0360; J0696; J1100; J1720; J1940; J2060; J2250; J2370; J2405; J2704; J3010; J3370; J3411; J3475; J3480; J7050; J7060; J7120; J7131; P9040; Q9967